=== PATIENT | female | born 2005 | race African-American/Black ===

== ENCOUNTER 2024-02-22 14:36 | Outpatient (CLI) | payer OTHER ==
--- NOTE | 2024-02-23 10:21 | Ultrasound Report ---
PROCEDURE: Pelvic w/Transvaginal INDICATIONS: PELVIC PAIN TECHNIQUE: Real-time scanning was performed of the pelvic organs, with image documentation. Additional endovagi nal scanning was necessary due to incomplete visualization of the adnexal and endometrial structures by transabdominal scanning. COMPARISON: None. FINDINGS: Uterus: Uterus is anteverted and normal in size at 6.8 x 4.4 x 3.2 cm. The myometrium is homogeneou s. The endometrium measures 9 mm in combined thickness. No fibroids seen. Ovaries: The right ovary measures 2.9 x 2.8 x 1.6 cm cm, with a calculated ovarian volume of 7 cc. The left ovary measures 2.5 x 1.6 x 1.3 cm, with a calculated ovarian volume of 3 cc. The ovaries christina ve a normal sonographic appearance. Greater than 12 follicles can be seen in each ovary. No adnexal masses are seen. No cystic lesions measuring greater than 3 cm. Other: No pathologic free abdominal or pelvic fluid. IMPRESSION: 1. Greater than 12 follicles can be seen in each ovary, which can be seen in the clinical setting of PCOS. 2. No suspicious ovarian cyst. 3. Endometrium measures 9 mm. Reviewed by: Andrew Serrato MD on 02/23/2024 10:20 AM PDT Approved by: Andrew Serrato MD on 02/23/2024 10:20 AM PDT Station ID: [id number]
== END 2024-02-22 14:37 | disposition home or self-care (01) ==
LOC: DI 14:36
PROVIDERS: ATTEND Family Medicine
DX: R10.2 Pelvic and perineal pain (principal); N94.9 Unspecified condition associated with female genital organs and menstrual cycle